=== PATIENT | female | born 1975 | race Two or more races ===

== ENCOUNTER 2025-03-21 12:38 | Emergency (ER) | payer MEDICAID ==
[~2025-03-21] VITALS: Ht 154.9 cm; Wt 68.2 kg
[2025-03-21 12:42] VITALS: TEMP 97.7
[2025-03-21 12:50] VITALS: BP 119/78; PULSE 84; RESP 18; O2SAT 99
== END 2025-03-21 14:46 | disposition home or self-care (01) ==
LOC: EMS 12:38
DX: Z45.2 Encounter for adjustment and management of vascular access device (principal); Z85.3 Personal history of malignant neoplasm of breast
CPT/HCPCS: 99281; 99282; Z7502